=== PATIENT | male | born 1965 | race Caucasian/White ===

== ENCOUNTER 2017-04-09 06:31 | Day surgery (SDC) | payer BC ==
--- NOTE | 2017-04-08 03:17 | HP ---
ADMITTING HISTORY AND PHYSICAL: DATE OF ADMISSION: 04/09/17 AGE: 51 years, male. ADMISSION DIAGNOSIS: Left hydrocele. PLANNED PROCEDURE: Left hydrocelectomy. SURGEON: James Geiger MD. HISTORY OF PRESENT ILLNESS: Daryn Ny is a 51-year-old gentleman who had initially been evaluated last year for findings of a large left hydrocele. This is causing increasing discomfort and he would like surgical treatment for the same. He is now being brought in for a left hydrocelectomy. PAST MEDICAL HISTORY: Significant for hypertension. PAST SURGICAL HISTORY: Significant for right inguinal lymph node biopsy in the (benign). MEDICATIONS: On admission, hydrochlorothiazide 12.5 mg a day. ALLERGIES: No known drug allergies. FAMILY HISTORY: His father has a history of prostate cancer. SMOKING HISTORY: Nonsmoker. PHYSICAL EXAMINATION GENERAL: A pleasant healthy-appearing gentleman. VITAL SIGNS: Blood pressure is 120/80, pulse 95 per minute and regular. Temperature 98.0, oxygen saturation 97% on room air. LUNGS: Clear bilaterally. CARDIOVASCULAR: Regular rate and rhythm. S1, S2. ABDOMEN: Soft without masses. Testicles are descended bilaterally. A large left hydrocele is noted. The right testicle is normal with a small right epididymal cyst noted. IMPRESSION: I had a detailed discussion with Mr. Ny regarding a left hydrocelectomy and the possible risks including bleeding, infection, recurrence of the hydrocele, and possible injury to the testicle. All of his questions were answered. PLAN: Left hydrocelectomy. CC: Messi Hall MD* [id number]/[facility] #: [id number] MTDD
[~2017-04-09 06:31] MED LIST: Dexamethasone IV* 4 MG/ML 1 ML (4 MG) IV SLOW PU ONE; Famotidine IV* 10 MG/ML 2 ML (20 mg) IV ONE
[2017-04-09] MEDS ORDERED: Famotidine IV* 10 MG/ML 2 ML (20 mg) ONE (06:56)
[2017-04-09] MEDS ORDERED: Dexamethasone IV* 4 MG/ML 1 ML (4 MG) ONE (06:57)
[2017-04-09] MEDS ORDERED: cefTRIAXone(*) 2 GM ADDV.VIAL IVPB ONE (06:57)
[2017-04-09] MEDS ORDERED: Bupivacaine 0.5% SDV PF* 30 ML VIAL ONE (07:25)
[2017-04-09] MEDS ORDERED: Propofol* 10 MG/ML 20 ML BTL IV PUSH ONE (07:38)
[2017-04-09] MEDS ORDERED: Ketorolac INJ* 30 MG/ML 1 ML VIAL ONE (07:38)
[2017-04-09] MEDS ORDERED: Ondansetron INJ* 2 MG/ML VIAL ONE (07:38)
[2017-04-09] MEDS ORDERED: fentaNYL* 50 MCG/ML 2 ML VIAL (100 MCG VIAL) ONE (07:38)
[2017-04-09] MEDS ORDERED: Midazolam* 1 MG/ML 2 ML VIAL (2 MG) ONE (07:38)
[2017-04-09] MEDS ORDERED: DiMENhydriNATE IV* 50 MG/ML VIAL IV PUSH PRN (08:20)
[2017-04-09] MEDS ORDERED: fentaNYL* 50 MCG/ML 2 ML VIAL (100 MCG VIAL) IV PRN (08:20)
[2017-04-09] MEDS ORDERED: oxyCODONE/Acetamin 5/325 MG* TAB ONE (10:20)
[2017-04-09 10:22] VITALS: BP 141/98
--- NOTE | 2017-04-10 01:31 | OP ---
OPERATIVE REPORT: DATE OF OPERATION: 04/09/17 - [facility] DATE OF : 63 SURGEON: James Geiger MD ANESTHESIOLOGIST: Dr. Esteves. ANESTHESIA: General. PRE-OP DIAGNOSIS: Left hydrocele. POST-OP DIAGNOSIS: Left hydrocele. OPERATIVE PROCEDURE: Left hydrocelectomy. INDICATIONS: Daryn Ny is a 51-year-old gentleman, who has had increasing discomfort secondary to a left hydrocele and he desires treatment of the same. COMPLICATIONS: None. POSTOPERATIVE CONDITION: Stable. ESTIMATED BLOOD LOSS: Minimal. DRAINS: Quarter-inch Addie drain, left scrotum. DESCRIPTION OF PROCEDURE: After induction of general anesthesia, the patient was placed on the operating table in supine position. External genitalia area were prepped and draped in the usual sterile fashion. A transverse incision was made in the left hemiscrotum. The dartos was incised and a plane was created surrounding the testicle and surrounding tunica. The tunica vaginalis was then opened longitudinally and about 150 cc of clear colored hydrocele fluid was drained. Some of the redundant part of the tunica was trimmed and the tunica was then everted. The everted edges were then oversewn and approximated using running interlocking sutures of 4-0 chromic. Hemostasis was secured using the electrocautery. The testicle was placed back in its normal anatomic position. A [place] drain was placed through an incision in the dependent part of the scrotum and anchored to the skin using 4-0 Prolene. The wound was irrigated. The dartos was approximated using interrupted sutures of 3 -0 chromic and the skin was approximated using 3-0 and 4-0 chromic horizontal mattress sutures. Dry sterile dressings were applied. All sponge and needle counts were correct. The patient tolerated the procedure satisfactorily and was transferred back to the recovery area in stable condition. CC: Titus Peoples NP; Dr. Geiger* [id number]/[facility] #: [id number] MTDD
== END 2017-04-09 10:49 | disposition home or self-care (01) ==
LOC: OR 06:31
PROVIDERS: ATTEND Urology
DX: N43.3 Hydrocele, unspecified (principal); I10 Essential (primary) hypertension; R55 Syncope and collapse
CPT/HCPCS: A9270-GY; J0696; J1100; J1885; J2250; J2405; J2704; J3010

== ENCOUNTER 2017-11-14 11:41 | Emergency (ER) | payer BC ==
[2017-11-14 11:53] VITALS: BP 129/88
--- NOTE | 2017-11-14 13:32 | RAD ---
INDICATION: Right hip pain COMPARISON: None TECHNIQUE: An AP view of the pelvis and AP views of the hip in neutral and abducted position were obtained FINDINGS: Bones: There are no acute bony findings. Joint spaces: The hips articulate normally. The joint spaces are preserved. SI joints/symphysis: The SI joints and symphysis are intact. Other: None IMPRESSION: NO ACTIVE DISEASE.
--- NOTE | 2017-11-14 15:02 | ED ---
Lower Extremity - HPI Summary HPI Summary: Patient presents to the ED s/p fall with pain to the right hip. Denies radiation of pain. He slipped on the ice and sustained a bruise and injury to the posterior hip with shooting pain down the leg immediately after the fall. Pain has improved since the fall. He has been ambulating well. Denies numbness , tingling or temperature changes to the area. Has taken ibuprofen with relief. Denies blood thinners. Otherwise healthy. - History of Current Complaint Chief Complaint: EDExtremityLower Stated Complaint: RIGHT HIP PAIN, Time Seen by Provider: 11/14/17 12:23 Hx Obtained From: Patient Mechanism Of Injury: Blunt Trauma Onset of Pain: Immediate Onset/Duration: Minutes Severity Initially: Mild Severity Currently: Mild Pain Intensity: 3 Pain Scale Used: 0-10 Numeric Timing: Constant Location: Is Discrete @ - right posterior hip pain Associated Signs And Symptoms: Positive: Bruising Aggravating Factor(s): Standing, Ambulation Alleviating Factor(s): Rest Able to Bear Weight: No - Risk Factors Gout Risk Factors: Male DVT Risk Factors: Negative Septic Arthritis Risk Factor: Negative - Allergies/Home Medications Allergies/Adverse Reactions: Allergies Allergy/AdvReac Type Severity Reaction Status Date / Time No Known Allergies Allergy Verified 11/14/17 11:51 PMH/Surg Hx/FS Hx/Imm Hx Previously Healthy: Yes Cardiovascular History: Reports: Hx Hypertension - ON MEDICATION FOR Denies: Hx Pacemaker/ICD Sensory History: Reports: Hx Contacts or Glasses - GLASSES Denies: Hx Hearing Aid Opthamlomology History: Reports: Hx Contacts or Glasses - GLASSES Neurological History: Reports: Other Neuro Impairments/Disorders - STATES CAN PASS OUT EASILY- USUALLY RELATED TO STRESS - Surgical History Surgery Procedure, Year, and Place: REMOVAL OF LYMPH NODE-25 YEARS AGO-OFFICE- RIGHT GROIN Hx Anesthesia Reactions: No - Immunization History Date of Influenza Vaccine: 09/02 Hx Pertussis Vaccination: No Immunizations Up to Date: Yes Infectious Disease History: No Infectious Disease History: Denies: Traveled Outside the [place] in Last 30 Days - Social History Occupation: Employed Full-time Lives: With Family Alcohol Use: Occasionally Hx Substance Use: Yes Substance Use Type: Reports: Marijuana Substance Use Comment - Amount & Last Used: MARIJUANA OCCASIONALLY Smoking Status (MU): Never Smoked Tobacco Review of Systems Constitutional: Negative Negative: Fever, Chills, Fatigue, Skin Diaphoresis Eyes: Negative Cardiovascular: Negative Respiratory: Negative Positive: no symptoms reported, see HPI Positive: Arthralgia, Myalgia Positive: Bruising Neurological: Negative All Other Systems Reviewed And Are Negative: Yes Physical Exam Triage Information Reviewed: Yes Vital Signs On Initial Exam: Initial Vitals Temp Pulse Resp BP Pulse Ox 98.5 F 78 16 129/88 99 11/14/17 11:52 11/14/17 11:52 11/14/17 11:52 11/14/17 11:52 11/14/17 11:52 Vital Signs Reviewed: Yes Appearance: Positive: Well-Appearing, Well-Nourished Skin: Positive: Warm, Skin Color Reflects Adequate Perfusion Head/Face: Positive: Normal Head/Face Inspection Eyes: Positive: EOMI, TUSHAR, Conjunctiva Clear Neck: Positive: Supple, No Lymphadenopathy Respiratory/Lung Sounds: Positive: Clear to Auscultation, Breath Sounds Present Cardiovascular: Positive: RRR, Pulses are Symmetrical in both Upper and Lower Extremities Musculoskeletal: Positive: Pain @ - right posterior hip pain s/p fall Neurological: Positive: Speech Normal Psychiatric: Positive: Normal, Affect/Mood Appropriate - Tracy Coma Scale Coma Scale Total: 15 Diagnostics - Vital Signs Vital Signs Temp Pulse Resp BP Pulse Ox 11/14/17 11:52 98.5 F 78 16 129/88 99 - Laboratory Lab Statement: Any lab studies that have been ordered have been reviewed, and results considered in the medical decision making process. Lower Extremity Course/Dx - Course Course Of Treatment: Patient presents to the ED s/p fall. Hip and pelvis negative for any acute findings. He is encouraged ibuprofen and ice and is OK with plan. Feels improved from fall. He is dx with hip contusion. Treatment options explained to patient. Patient understands the plan, voices no concerns at this time and understands the return precatuions given to them if they develop any worsening or changing symptoms. They are OK for discharge at this time. VS stable on discharge. Primary care follow up as agreed on discharge. - Diagnoses Provider Diagnoses: Contusion, hip Discharge - Discharge Plan Condition: Stable Disposition: HOME Patient Education Materials: Hip Contusion (ED) Referrals: Messi Hall MD [Primary Care Provider] - Additional Instructions: Ibuprofen 600mg three times daily Ice to the area Continue to ambulate small amounts at a time to prevent stiffness- this will help heal the hip joint Images - Images Full Body (No Head): 1 - pain and ecchymosis s/p fall/ ambulating well
== END 2017-11-14 14:06 | disposition home or self-care (01) ==
LOC: ED 11:41
DX: S70.00XA Contusion of unspecified hip, initial encounter (principal); W19.XXXA Unspecified fall, initial encounter; Y93.9 Activity, unspecified; Y92.9 Unspecified place or not applicable
CPT/HCPCS: 99281